=== PATIENT | male | born 1975 | race Caucasian/White ===

== ENCOUNTER 2025-07-21 16:37 | Emergency (ER) | payer OTHER, SELFPAY ==
[2025-07-21 16:38] VITALS: BP 140/89; PULSE 62; RESP 16; TEMP 36.1; O2SAT 100; BMI 30.9
--- NOTE | 2025-07-21 17:05 | EDS_ITS ---
HPI History of Present Illness Chief Complaint: [facility] Ext[facility] ?Medication ?Instructions ?Recorded ?Last Taken ?Type NK 07/21/25 Unknown History Allergy/AdvReac Type Severity Reaction Status Date / Time No Known Allergies Allergy Verified 07/21/25 16:39 Social History Smoking Status: Never smoker EXAM Physical Exam Const Vital Signs: 07/21/25 16:38 Temperature 97 F L Temperature Source Temporal Pulse Rate 62 Respiratory Rate 16 Blood Pressure 140/89 H Blood Pressure Mean 106 Pulse Ox 100 Oxygen Delivery Method [place] [facility] [place] Medical decision making narrative: HISTORY OF PRESENT ILLNESS: Chief complaint: Fall, right hand pain 50-year-old male presents concern of right hand pain after a fall. States he fell prior to arrival. Further states he did not hit his head. He denies neck pain right shoulder pain elbow pain. Did not hurt his hip knee or elbow. States he fell onto his right hand walking upstairs to be discarded 24 hours ago. He did not pass out. He denies prior surgery to the right hand but he is right-hand dominant. REVIEW OF SYSTEMS: Pertinent positives: Right hand pain Pertinent negatives: As per HPI PHYSICAL EXAM: Nursing triage notes reviewed, Vital signs reviewed Primary Survey Airway: Intact Breathing: Bilateral breath sounds Circulation: Palpable bilateral femorals, Palpable bilateral radial, Palpable bilateral DP and Palpable bilateral PT Disability / Spine precautions GCS Score: Eye Openin Verbal Response: 5 Motor Response: 6 Secondary Survey Constitutional: Please see [facility] Head: Atraumatic, Midface stable, NO jaw malocclusion, No Cephalohematoma, and No Lacerations noted Eye: Pupils equal round and reactive to light, Extraocular muscles intact and No periorbital ecchymosis or stepoff, no evidence of entrapment ENT: Oropharynx clear, no lacerations, no hemotympanum, no raccoon eyes or owen sign Cervical spine / Neck: No cervical spine bony tenderness, crepitance, or stepoff deformity Trachea midline Lungs: Clear to auscultation, No asymmetric rise and No crepitus, no flail chest Cardiac: Regular rate and rhythm and No murmurs Abdomen: Soft, Nontender and No rebound Pelvis: Pelvis stable to compression : No evidence of genital injury Back: No midline bony tenderness to thoracic/lumbar/sacral spines Neuro: Intact 5/5 strength with ok sign (median), intact finger abduction (ulnar) intact wrist extension (radial n). Intact sensation in the radial, ulnar, and median nerve distributions. Extremities: NO gross Deformities, TTP over fourth metacarpal Nursing triage notes reviewed, Vital signs reviewed MEDICAL DECISION MAKING: Chief Complaint: please see HPI External records reviewed: Reviewed prior imaging studies Factors affecting care: none Social determinants of health: denies alcohol or illicit drug History obtained from others: none Consults: none MDM Narrative: Patient was initially hemodynamically stable, afebrile and nontoxic-appearing. Primary secondary trauma surveys were concerning for the following differential: I considered the following differential diagnosis: hand fracture, dislocation I obtained an x-ray to further determine if the patient was suffering from a life-threatening etiology. Initially offered Tylenol and ibuprofen and ice however patient refused stating he did not need pain medicine at this time ALL IMAGES (IF OBTAINED) HAVE BEEN PERSONALLY REVIEWED AND INTERPRETED BY MYSELF. X-ray of the right hand was read and reviewed personally myself and showed no acute fracture dislocation. Radiologist agreed my interpretation. The synthesis of the patient's history, physical exam, labs images suggest likely hand contusion. RICE instructions discussed. PCP follow-up discussed. Strict return precautions were discussed. The patient and/or family, caregivers express understanding. The patient and/or family, caregivers agrees with the plan. Shared decision making: I will have a discussion with the patient and or visitors regarding risk/benefits of further testing or admission. They will be made aware of of the risk/benefits inherent in this decision they will be given the opportunity to voice understanding. Total critical care time today provided was at least 0 minutes. This excludes separately billable procedures. Critical care time (if documented) is secondary to the patient having high probability of clinically significant/life threatening deterioration in the patient's condition which required my urgent intervention. Impression: 1. Hand contusion Dispo: Discharge home This note was generated with ensembli dictation software. It may contain incorrect words, spelling, and punctuation that were not noted in review of the chart prior to signing. Discharge Plan Triage Chief Complaint: Upper Extremity Injury ED Provider: Magen Lux Dx/Rx/DC Orders Instructions: ED Hand Contusion Prescriptions: No Action NK Primary Care Provider: Agustin Clolins Referrals: Agustin Collins DO [Primary Care Provider, [facility]] Activity Restrictions/Additional Instructions: Thank you for trusting us with your care today! I apologize for the delay in your x-ray. The x-ray results were negative for bony injury such as fracture, dislocation or break. You are suffering from a bony contusion. This requires no specific treatment. You can try rest, ice compression and elevation to relieve pain and swelling from the contusion. Please take Tylenol (2 pills, 650 mg), ibuprofen (2 pills, 400 mg) every 6 hours as needed for pain and fever control. Please return to the emergency department if your symptoms change or worsen. Please follow with your primary care physician for further outpatient evaluation and management. Print Language: Japanese Disposition Disposition: Home, Self Care
--- NOTE | 2025-07-21 17:17 | RAD_ITS ---
PROCEDURE: HAND MIN 3 VIEWS 07/21/2025 REASON FOR EXAM: 4TH DIGIT PAIN/4TH METATARSAL R/O FRACTURE TECHNIQUE: Procedure Code: MIRYAM Modality: DX Procedure: HAND MIN 3 VIEWS COMPARISON: None. FINDINGS: No acute bony abnormalities. No dislocations. No soft tissue abnormalities. RAD/Hand Min 3 Views IMPRESSION: No acute osseous abnormalities. Reading Location: [id number]
[2025-07-21 19:52] VITALS: BP 133/92; PULSE 64; RESP 16; TEMP 36.1; O2SAT 100
== END 2025-07-21 19:53 | disposition home or self-care (01) ==
PROVIDERS: Emergency Provider Emergency Medicine; PCP Family Medicine; Visit Provider Emergency Medicine
DX: S60.221A Contusion of right hand, initial encounter (principal); W10.9XXA Fall (on) (from) unspecified stairs and steps, initial encounter
CPT/HCPCS: 73130; 99282